=== PATIENT | male | born 1970 | race Caucasian/White ===

== ENCOUNTER 2018-08-14 01:10 | Emergency (ER) | payer MEDICAID ==
[~2018-08-14] VITALS: Ht 170.2 cm; Wt 77.3 kg
[2018-08-14 01:12] VITALS: Ht 170.2 cm; Wt 77.3 kg
[2018-08-14] MEDS ORDERED: morphine 4 MG/ML VIAL IV STA (01:35)
[2018-08-14] MEDS ORDERED: ONDANSETRON 4 MG INJ IV STA ×2 (01:35→02:11)
[2018-08-14] MEDS ORDERED: KETAMINE HCL (50 MG/ML) 1ml syringe IV STA (02:11)
[2018-08-14] MEDS ORDERED: KETOROLAC 15 MG INJ IV ONE (04:50)
[2018-08-14] MEDS ORDERED: HYDROCODONE/APAP (5/325) TAB PO ONE (05:00)
[2018-08-14] MEDS ORDERED: SOD CHLORIDE 0.9% 1,000 ML IV ONE (05:00)
[2018-08-14] MEDS ORDERED: TAMS-14 PO (05:28)
[2018-08-14] MEDS ORDERED: IBUP-1542 PO (05:28)
[2018-08-14] MEDS ORDERED: ONDA8TAB14 PO (05:28)
[2018-08-14] MEDS ORDERED: HYDR-4011 PO (05:28)
--- NOTE | 2018-08-14 05:33 | ERD ---
ER Documentation Chief Complaint Chief Complaint LLQ PAIN X'S 1 HOUR HPI 47-year-old male presents for intermittent left lower quadrant/flank pain for the last day. Patient states that he does not have a history of kidney stones, he has not had prior symptoms in the past. He endorses nausea and vomiting, states he is otherwise healthy, he has not had a fever. ROS All systems reviewed and are negative except as per history of present illness. Medications Home Meds Active Scripts Ibuprofen* (Motrin*) 600 Mg Tab, 600 MG PO Q6, #30 TAB Prov:JANI WILSON MD 08/14/18 Ondansetron (Ondansetron Odt) 8 Mg Tab.rapdis, 8 MG PO Q6H PRN for NAUSEA AND/OR VOMITING, #10 TAB Prov:JANI WILSON MD 08/14/18 Tamsulosin Hcl* (Flomax*) 0.4 Mg Cap.er.24h, 0.4 MG PO QPM, #30 CAP Prov:JANI WILSON MD 08/14/18 Hydrocodone/Acetaminophen (Juncos 5-325 Tablet) 1 Each Tablet, 1 TAB PO Q6H PRN for PAIN, #15 TAB Prov:JANI WILSON MD 08/14/18 Allergies Allergies: Coded Allergies: No Known Allergy (Unverified , 11/15/13) PMhx/Soc Medical and Surgical Hx: pt denies Medical Hx, pt denies Surgical Hx History of Surgery: No Anesthesia Reaction: No Hx Neurological Disorder: No Hx Respiratory Disorders: No Hx Cardiac Disorders: No Hx Psychiatric Problems: No Hx Miscellaneous Medical Probl: No Hx Alcohol Use: No Hx Substance Use: No Hx Tobacco Use: No Smoking Status: Never smoker Physical Exam Vitals Vital Signs Date Temp Pulse Resp B/P (MAP) Pulse Ox O2 O2 Flow FiO2 Time Delivery Rate 08/14/18 78 16 131/73 98 Room Air 04:47 (92) 08/14/18 66 20 122/76 100 Nasal 2.0 02:45 (91) Cannula 08/14/18 97.8 71 20 144/89 100 01:12 (107) Physical Exam Const: Uncomfortable appearing, moaning, trying to find a comfortable position Head: Atraumatic Eyes: Normal Conjunctiva ENT: Normal External Ears, Nose and Mouth. Neck: Full range of motion. No meningismus. Resp: Clear to auscultation bilaterally Cardio: Regular rate and rhythm, no murmurs Abd: Soft, non tender, non distended, no rebound or guarding, no McBurney's point tenderness. Normal bowel sounds exam: No penile drainage, no lesions, no testicular tenderness, Skin: No petechiae or rashes Back: No midline or flank tenderness Ext: No cyanosis, or edema Neur: Awake and alert Psych: Normal Mood and Affect Result Diagram: 08/14/1814108/14/18 014 Results 24 hrs Laboratory Tests Test 08/14/18 01:42 08/14/18 02:17 White Blood Count 11.0 10^3/ul Red Blood Count 4.45 10^6/ul Hemoglobin 14.1 g/dl Hematocrit 39.4 % Mean Corpuscular Volume 88.5 fl Mean Corpuscular Hemoglobin 31.7 pg Mean Corpuscular Hemoglobin Concent 35.8 g/dl Red Cell Distribution Width 11.9 % Platelet Count 248 10^3/UL Mean Platelet Volume 9.5 fl Immature Granulocytes % 0.700 % Neutrophils % 74.9 % Lymphocytes % 15.3 % Monocytes % 7.5 % Eosinophils % 0.6 % Basophils % 1.0 % Nucleated Red Blood Cells % 0.0 /100WBC Immature Granulocytes # 0.080 10^3/ul Neutrophils # 8.3 10^3/ul Lymphocytes # 1.7 10^3/ul Monocytes # 0.8 10^3/ul Eosinophils # 0.1 10^3/ul Basophils # 0.1 10^3/ul Nucleated Red Blood Cells # 0.0 10^3/ul Sodium Level 141 mmol/L Potassium Level 4.0 mmol/L Chloride Level 107 mmol/L Carbon Dioxide Level 21 mmol/L Anion Gap 13 Blood Urea Nitrogen 20 mg/dl Creatinine 0.98 mg/dl Est Glomerular Filtrat Rate mL/min > 60 mL/min Glucose Level 169 mg/dl Calcium Level 8.9 mg/dl Total Bilirubin 0.8 mg/dl Direct Bilirubin 0.00 mg/dl Indirect Bilirubin 0.8 mg/dl Aspartate Amino Transf (AST/SGOT) 21 IU/L Alanine Aminotransferase (ALT/SGPT) 26 IU/L Alkaline Phosphatase 58 IU/L Troponin I < 0.012 ng/ml Total Protein 7.0 g/dl Albumin 4.2 g/dl Globulin 2.80 g/dl Albumin/Globulin Ratio 1.50 Lipase 49 U/L Bedside Glucose 164 mg/dL Current Medications Medications Dose Sig/Mariam Start Time Status Last (Trade) Ordered Route PRN Stop Time Admin Dose Reason Admin Morphine 4 mg ONCE STAT 08/14/18 DC 08/14/18 Sulfate IV 01:35 08/14/18 01:47 (morphine) 01:36 Ondansetron 4 mg ONCE STAT 08/14/18 DC 08/14/18 HCl (Zofran IV 01:35 08/14/18 01:47 Inj) 01:36 Ondansetron 4 mg ONCE STAT 08/14/18 DC 08/14/18 HCl (Zofran IV 02:11 08/14/18 02:22 Inj) 02:12 Ketamine 23 mg ONCE STAT 08/14/18 DC 08/14/18 HCl IV 02:11 08/14/18 02:23 (Ketamine 02:12 HCl) Sodium 1,000 ml @ Q1H ONCE 08/14/18 Chloride 1,000 mls/hr IV 05:00 08/14/18 05:59 Ketorolac 15 mg ONCE ONCE 08/14/18 DC 08/14/18 Tromethamine IV 04:50 08/14/18 04:56 (Toradol) 04:51 2 tab ONCE ONCE 08/14/18 DC 08/14/18 Acetaminophen PO 05:00 08/14/18 04:56 / 05:01 Hydrocodone Bitart (Juncos (5/325)) [place] [id number] Radiology Main Line: [phone] DIAGNOSTIC IMAGING REPORT Patient: ADAM VILLELA : 1970 Age: 47 Sex: M MR #: [id number] DOS: 08/14/18 0125 Ordering MD: JANI WILSON MD Location: E/R Room/Bed: PROCEDURE: CT Abdomen and pelvis without contrast. CLINICAL INDICATION: Abdominal pain TECHNIQUE: CT scan of the abdomen and pelvis without contrast was performed on a multidetector high-resolution CT scan. . Coronal and sagittal reformatted images were obtained from the axial source images. Standard CT scan of the abdomen pelvis without contrast protocols were performed. The total exam CTDI equals 5.76 mGy and the total exam DLP equals. 348.09 mGy- cm. One or more of the following dose reduction techniques were used: - Automated exposure control. - Adjustment of the mA and/or kV according to patient size. Use of iterative reconstruction technique. Dicom images are available COMPARISON: None. FINDINGS: Stomach, small bowel, large bowel and appendix are unremarkable. No evidence of intra-abdominal free air, free fluid, abscesses or lymphadenopathy. The kidneys are normal in size without intra renal masses bilaterally. There is a punctate 2 mm non-obstructing posterior mid left renal calcified calculus. No other calcified renal calculi bilaterally. There is a 4 mm obstructing left ureter vesicle junction calcified calculus with moderate left hydronephrosis and hydroureter. No right ureteral calcified calculi or dilatation. No right obstructive uropathy. Urinary bladder and prostate unremarkable. Mild hepatomegaly with diffuse hepatic fatty infiltration. No focal hepatic lesions. Spleen pancreas adrenal glands and gallbladder are marked. No evidence biliary ductal dilation. Lung bases unremarkable. Aorta unremarkable. Abdominal pelvic wall unremarkable. Mild dextrorotoscoliosis lower thoracic and lumbar spine. Degenerative changes lower thoracic and lumbar spine without acute osseous findings are osteoblastic/osteolytic lesions. IMPRESSION: 1. 4 mm obstructing left ureter vesicle junction calcified calculus with moderate left hydronephrosis and hydroureter. 2. Additional punctate 2 mm nonobstructing mid left renal calcified calculus. No other calcified urinary calculi bilaterally. No right obstructive uropathy. 3. No gastrointestinal disease. RPTAT:AAJJ Physician Russ Date Time Electronically viewed and signed by Physician Russ on 08/14/2018 04:27 BM/ CC: JANI WILSON MD [id number] Procedures/MDM 47-year-old male presents for evaluation of the left lower quadrant pain. History and physical most consistent with kidney stones, CT showed left-sided kidney stone, with mild to moderate hydronephrosis. In the ED, the patient was given morphine, low-dose ketamine and Toradol. He experienced significant improvement in his pain. exam was unremarkable, and testicular ultrasound showed normal flow with no evidence of torsion. On reassessment, discussed findings with him, offered admission, but shared decision making made and patient felt comfortable going home, he was provided prescription for Motrin, Juncos, Zofran as well as ibuprofen. Strict return cautions given to return for any fever, worsening pain or any other concerning symptoms at discharge he was in no distress Departure Diagnosis: Primary Impression: Kidney stone Condition: Stable Patient Instructions: Kidney Stone W/ Colic Additional Instructions: Call your primary care doctor TOMORROW for an appointment during the next 2-3 days.See the doctor sooner or return here if your condition worsens before your appointment time. JANI WILSON MD Aug 14, 2018 05:33
[2018-08-14 05:35] VITALS: BP 132/84; PULSE 85; RESP 16
== END 2018-08-14 06:05 | disposition home or self-care (01) ==
LOC: E/R 01:10
DX: N20.0 Calculus of kidney (principal); R40.2142 Coma scale, eyes open, spontaneous, at arrival to emergency department; R40.2362 Coma scale, best motor response, obeys commands, at arrival to emergency department; R40.2252 Coma scale, best verbal response, oriented, at arrival to emergency department
CPT/HCPCS: 36415; 71045; 74176; 76870; 80053; 81003; 82962; 83690; 84484; 85025; 93005; 96374; 96375; 96376; J1885; J2270; J2405; J7030; Z7502; Z7610